=== PATIENT | male | born 1990 | race Caucasian/White ===

== ENCOUNTER → 2016-08-24 | Day surgery (SDC) | payer BC ==
--- NOTE | ~2016-08-24 | OR ---
Unit #: [id number] #: [id number] Patient: OLY CHRISTIE [id number] [facility] [address] [place], [place] [address] [id number] O MR#: [id number] NAME: OLY CHRISTIE ROOM: Date of Procedure: 08/24/2016 Admission Date: 08/24/2016 Surgeon: Edgar Lopez M.D. : 1990 Attending Physician: Edgar Lopez M.D. Primary Care Physician: Generic Doctor Not In System OPERATIVE REPORT PREOPERATIVE DIAGNOSIS Left inguinal hernia. POSTOPERATIVE DIAGNOSES Incarcerated indirect left inguinal hernia. PROCEDURE PERFORMED Open repair with PerFix plug mesh. ANESTHESIA General endotracheal anesthesia. ESTIMATED BLOOD LOSS Less than 10 mL. 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 He now has a persistent bulge in the left inguinal canal that is not strangulated, but uncomfortable. This is consistent with incarcerated left inguinal hernia. DESCRIPTION OF PROCEDURE The patient was admitted to [facility], positively identified, and transported to the operating room, and after induction of general endotracheal anesthesia, he received IV antibiotics per SCIP protocol. His abdominal wall and pubic area were clipped and he was prepped and draped in usual sterile fashion. Over the left inguinal canal in the skin line, an incision made and I dissected down through the soft tissue exposing the external oblique aponeurosis. The aponeurosis was opened in the direction of fibers to include the external ring. The ilioinguinal and hypogastric nerves were identified and preserved. The cord structures were elevated from the floor of the inguinal canal and encircled with a Bridgette drain. An indirect hernia sac was dissected from the cord structures preserving all the cord structures and once the hernia sac was and mobilized down the level of the internal ring, the sac was opened and there was incarcerated omentum. The omentum was freed up and reduced back in the peritoneal cavity. The hernia sac was twisted closed, suture ligated and excess sac excised I then reduced the stump of the hernia sac through the internal ring back into the peritoneal cavity and closed the internal ring with a PerFix plug mesh. The plug was secured with 0 Ethibond interrupted suture. Onlay mesh was then secured Unit #: [id number] #: [id number] Patient: OLY CHRISTIE to the pubic tubercle, stretched across the inguinal canal. The tails were crossed around the spermatic cord as it exited the abdominal wall. The tails were crossed and secured to the musculofascial tissues superior and lateral to the internal ring. The limbs of the mesh were secured to the rectus sheath medially and the shelving edge of inguinal ligament laterally. The cord structures placed back in the anatomic position. There was good hemostasis. 30 mL of 0.5% Marcaine with epinephrine was infiltrated in the fascia and soft tissue. The soft tissue was closed over the repair with 2-0 Vicryl running suture. The skin was closed with 4-0 Monocryl running subcuticular closure and Dermabond skin adhesive. Sponges and needle counts were correct x3. The patient tolerated the procedure well and transported to recovery in stable condition. Findings and postoperative instructions were discussed with his family. Dictated by... Kamla Estrada/quinn TD: 08/25/2016 03:28 JOB #: [id number] OPERATIVE REPORT Page 1 of 1 X Edgar Lopez MD X PROCEDURE OPERATIVE NOTE
[2016-08-24 07:51] LABS: HEMATOCRIT 46.1 % (38.0-50.0); HEMOGLOBIN 15.5 gm/dL (13.0-16.0); MEAN CELL VOLUME 86.9 FL (83-96); MEAN CORPUSCULAR HEMOGLOBIN 29.2 PG (28-34); MEAN CORPUSCULAR HGB CONC 33.6 g/dL (30-36); MEAN PLATELET VOLUME 8.6 FL (6.5-11.5); RED BLOOD COUNT 5.31 X10e (3.90-5.60); RED CELL DISTRIBUTION WIDTH 12.6 % (11.0-15.5); WHITE BLOOD COUNT 5.3 X10e3 (4.0-10.5)
[2016-08-24 08:15] LABS: BLOOD UREA NITROGEN 20 mg/dL (9-23); BUN/CREATININE RATIO 18.18; CALCIUM SERUM 9.4 mg/dL (8.4-10.2); CARBON DIOXIDE 28 mmol/L (22-31); CHLORIDE 104 mmol/L (100-111); CREATININE SERUM 1.1 mg/dL (0.6-1.4); GLOM FILT RATE Estimated ABOVE60 mL/min (>60); GLUCOSE FASTING 97 mg/dL (70-110); POTASSIUM 3.6 mmol/L (3.5-5.1); SODIUM 141 mmol/L (135-145)
== END | disposition home or self-care (01) ==
LOC: CSUR 07:01
PROVIDERS: Specialist
DX: K40.30 Unilateral inguinal hernia, with obstruction, without gangrene, not specified as recurrent (principal)
CPT/HCPCS: 80048; 85027; C1781; J0690; J2175; J2250; J2405; J3010